=== PATIENT | male | born 1965 | race Caucasian/White ===

== ENCOUNTER 2023-12-11 18:20 | Emergency (ER) | payer SELFPAY ==
--- NOTE | ~2023-12-11 | XR_ITS ---
EXAM: XR knee LT 3V DATE: 12/11/2023 19:12 HISTORY: knee pain . COMPARISON: None available. FINDINGS: Normal mineralization. No fracture or dislocation. No lytic or blastic lesion. Mild tricom partmental osteoarthritis. No erosion or periosteal change. Thickening of the distal quadriceps. Athe rosclerotic calcifications. IMPRESSION: No acute osseous finding in the left knee. Distal quadriceps thickening may represent sof t tissue injury, correlate for pain/tenderness. Reviewed, dictated and finalized at location K. IMPRESSION: No acute osseous finding in the left knee. Distal quadriceps thicke karli may represent soft tissue injury, correlate for pain/tenderness.
--- NOTE | ~2023-12-11 | XR_ITS ---
EXAM: XR ankle LT min 3V DATE: 12/11/2023 19:12 HISTORY: pain . COMPARISON: None available. FINDINGS: Normal mineralization. No fracture or dislocation. No lytic or blastic lesion. Joint space s are maintained. No erosion or periosteal change. Soft tissues within normal limits. IMPRESSION: No acute osseous finding the left ankle. Reviewed, dictated and finalized at location K.
[2023-12-11 18:23] VITALS: RESP 20; TEMP 37.3
[2023-12-11 18:36] VITALS: BP 112/75; PULSE 71; RESP 14; O2SAT 98
[2023-12-11] MEDS: ACETAMINOPHEN 500 MG TABLET 1000 MG PO (18:47)
--- NOTE | 2023-12-11 19:39 | ED.LOWEXIN ---
HPI - Extremity Injury (Lower) General Chief Complaint: Extremity Injury, Lower Stated Complaint: LEFT KNEE DOWN TO FOOT PAIN Time Seen by Provider: 12/11/23 18:34 History of Present Illness HPI Narrative: Patient presenting with atraumatic pain from his left knee down to his foot, it was bad yesterday to the point where he was having trouble walking, it is much better today. States that it feels like when he has arthritis pain. Related Data Allergies Allergy/AdvReac Type Severity Reaction Status Date / Time No Known Allergies Allergy Unverified 09/13/14 12:03 Review of Systems Review of Systems: All systems reviewed & are unremarkable except as noted in HPI and below Exam Narrative: EXAMINATION OF ORGAN SYSTEMS/BODY AREAS: Constitutional: Vital signs per nursing GENERAL:[No acute distress, non-toxic appearing.] HEAD: Normal with no signs of head trauma. EYES: EOMI, conjunctiva normal ENT: Hearing grossly intact LUNGS: Nonlabored breathing. HEART: [Regular rate and rhythm]. Warm, well perfused foot and left lower leg ABD: [Soft], [tender to palpation] EXT: Normal range of motion, no lower extremity swelling, no tenderness to posterior left lower leg SKIN: [No rashes or lesions.] NEURO: [Alert and oriented x 3. No gross focal sensory or strength deficits.] PSYCH: Normal affect Course Vital Signs Vital signs: Vital Signs Temperature 99.1 F 12/11/23 18:23 Respiratory Rate 20 12/11/23 18:23 Oxygen Delivery Room Air 12/11/23 18:23 Temperature 99.1 F 12/11/23 18:23 Pulse Rate 71 12/11/23 18:36 Respiratory Rate 14 12/11/23 18:36 Blood Pressure 112/75 12/11/23 18:36 Pulse Oximetry 98 12/11/23 18:36 Oxygen Delivery Room Air 12/11/23 18:23 MDM - Extremity Injury (Lower) MDM Narrative Medical decision making narrative: Patient presenting with atraumatic left lower leg pain, on exam he is very well-appearing, no obvious deformity, neurovascularly intact, there is no swelling or tenderness and negative Homans sign, I have very low concern for DVT without swelling or posterior leg tenderness, doubt ischemic foot given well-perfused foot and no severe pain, doubt fracture without any recent injury. Knee and ankle x-rays are negative, patient given pain medication and prescription for this and follow-up to primary care doctor with return precautions Discharge Plan Discharge Clinical Impression: Leg pain, left Patient Disposition: Home, Self-Care Condition: Stable Instructions: Antibiotic Form, Leg Pain (ED) Additional Instructions: Please follow-up with your primary care doctor and/or the orthopedic doctor, come back to the ER sooner for any further issues. Prescriptions: New acetaminophen [Tylenol Extra Strength] 500 mg tablet 1,000 mg PO Q6H PRN (Reason: pain) Qty: 50 0RF methocarbamol 750 mg tablet 750 mg PO TID PRN (Reason: muscle spasm) Qty: 30 0RF Follow-up/Referrals: Jarret Briones MD [Physician] - 2 Days PHYSICIAN,CLOTHING ROOM SUPERVISOR [Primary Care Provider] -
== END 2023-12-11 19:15 | disposition home or self-care (01) ==
PROVIDERS: Emergency Provider Emergency Medicine
DX: M79.605 Pain in left leg (principal)
CPT/HCPCS: 73562; 73610; 99283; 99284; A9270